=== PATIENT | male | born 1975 | race Caucasian/White ===

== ENCOUNTER 2018-08-12 11:42 | Emergency (ER) | payer OTHER ==
[~2018-08-12] VITALS: Wt 89.5 kg
[2018-08-12] MEDS ORDERED: SOD CHLORIDE 0.9% 1,000 ML IV STA ×2 (12:40→13:35)
[2018-08-12] MEDS ORDERED: POTASSIUM CHLORIDE (SR) 20 MEQ TAB PO STA (13:31)
[2018-08-12] MEDS ORDERED: MAGNESIUM SULFATE 2 GM/50 ML 50 ML IVPB ONE (15:00)
[2018-08-12] MEDS ORDERED: POTASSIUM CHLORIDE 100 ML IVPB SCH (15:00)
[2018-08-12 19:29] VITALS: BP 114/70; PULSE 92; RESP 12
--- NOTE | 2018-08-12 19:34 | ERD ---
ER Documentation Chief Complaint Chief Complaint SUDDEN ONSET DIZZINESS NO NEURO DEFICIT NO TRAUMA. NO HEADACHE. HPI 43-year-old male presenting with complaints of sudden onset dizziness feeling like he is about to pass out. Patient has a history of A. fib but is only on aspirin. For the past 4 days he has been taking Lasix that someone gave him from the gym. He had some type of competition today that he wanted to be slim for. He is also not been eating well. He denies any fever, chills, nausea, vomiting, diarrhea, chest pain, shortness of breath, abdominal pain. ROS All systems reviewed and are negative except as per history of present illness. Allergies Allergies: Coded Allergies: No Known Allergy (Unverified , 08/12/18) PMhx/Soc Medical and Surgical Hx: pt denies Surgical Hx History of Surgery: No Anesthesia Reaction: No Hx Neurological Disorder: No Hx Respiratory Disorders: No Hx Cardiac Disorders: Yes (afib) Hx Psychiatric Problems: No Hx Miscellaneous Medical Probl: No Hx Alcohol Use: No Hx Substance Use: No Hx Tobacco Use: No Smoking Status: Never smoker FmHx Family History: No diabetes Physical Exam Vitals Vital Signs Date Temp Pulse Resp B/P (MAP) Pulse Ox O2 O2 Flow FiO2 Time Delivery Rate 08/12/18 97.8 86 20 111/87 100 Room Air 17:51 (95) 08/12/18 97.8 89 20 109/82 100 Room Air 16:56 (91) 08/12/18 97.8 91 20 115/89 100 Room Air 15:51 (98) 08/12/18 97.8 83 20 128/102 100 Room Air 15:00 (111) 08/12/18 97.8 102 20 140/86 98 11:51 (104) Physical Exam Const: No acute distress Head: Atraumatic Eyes: Normal Conjunctiva ENT: Dry mucous membranes. Normal External Ears, Nose and Mouth. Neck: Full range of motion. No meningismus. Resp: Clear to auscultation bilaterally Cardio: Tachycardic with regular rhythm, no murmurs Abd: Soft, non tender, non distended. Normal bowel sounds Skin: No petechiae or rashes Back: No midline or flank tenderness Ext: No cyanosis, or edema Neur: Awake and alert, oriented x3, cranial nerves intact, strength and sensations intact in all 4 extremities Psych: Normal Mood and Affect Result Diagram: 08/12/18 1249 08/12/18 1249 Results 24 hrs Laboratory Tests Test 08/12/18 12:49 White Blood Count 8.4 10^3/ul Red Blood Count 5.31 10^6/ul Hemoglobin 16.6 g/dl Hematocrit 47.7 % Mean Corpuscular Volume 89.8 fl Mean Corpuscular Hemoglobin 31.3 pg Mean Corpuscular Hemoglobin Concent 34.8 g/dl Red Cell Distribution Width 11.1 % Platelet Count 225 10^3/UL Mean Platelet Volume 11.4 fl Immature Granulocytes % 0.200 % Neutrophils % 74.7 % Lymphocytes % 15.2 % Monocytes % 8.7 % Eosinophils % 0.2 % Basophils % 1.0 % Nucleated Red Blood Cells % 0.0 /100WBC Immature Granulocytes # 0.020 10^3/ul Neutrophils # 6.2 10^3/ul Lymphocytes # 1.3 10^3/ul Monocytes # 0.7 10^3/ul Eosinophils # 0.0 10^3/ul Basophils # 0.1 10^3/ul Nucleated Red Blood Cells # 0.0 10^3/ul Urine Color STRAW Urine Clarity CLEAR Urine pH 5.0 Urine Specific [place] 1.010 Urine Ketones 2+ mg/dL Urine Nitrite NEGATIVE mg/dL Urine Bilirubin NEGATIVE mg/dL Urine Urobilinogen NEGATIVE mg/dL Urine Leukocyte Esterase NEGATIVE Moses/ul Urine Hemoglobin NEGATIVE mg/dL Urine Glucose NEGATIVE mg/dL Urine Total Protein NEGATIVE mg/dl Sodium Level 134 mmol/L Potassium Level 2.7 mmol/L Chloride Level 91 mmol/L Carbon Dioxide Level 24 mmol/L Anion Gap 19 Blood Urea Nitrogen 14 mg/dl Creatinine 1.15 mg/dl Est Glomerular Filtrat Rate mL/min > 60 mL/min Glucose Level 108 mg/dl Calcium Level 9.6 mg/dl Total Bilirubin 1.3 mg/dl Direct Bilirubin 0.00 mg/dl Indirect Bilirubin 1.3 mg/dl Aspartate Amino Transf (AST/SGOT) 115 IU/L Alanine Aminotransferase (ALT/SGPT) 111 IU/L Alkaline Phosphatase 121 IU/L Total Protein 7.9 g/dl Albumin 5.0 g/dl Globulin 2.90 g/dl Albumin/Globulin Ratio 1.72 Lipase 89 U/L Current Medications Medications Dose Sig/Fariha Start Time Status Last (Trade) Ordered Route PRN Stop Time Admin Dose Reason Admin Sodium 1,000 ml @ Q1H STAT 08/12/18 DC 08/12/18 Chloride 1,000 mls/hr IV 12:40 13:01 08/12/18 13:39 Potassium 40 meq ONCE STAT 08/12/18 DC 08/12/18 Chloride PO 13:31 13:55 (Klor-Con 20) 08/12/18 13:32 Sodium 1,000 ml @ Q1H STAT 08/12/18 DC 08/12/18 Chloride 1,000 mls/hr IV 13:35 13:59 08/12/18 14:34 Potassium 100 ml @ Q2H IVPB 08/12/18 08/12/18 Chloride 50 mls/hr 15:00 15:43 08/12/18 22:59 Magnesium 50 ml @ 25 ONCE ONCE 08/12/18 DC 08/12/18 Sulfate mls/hr IVPB 15:00 15:43 08/12/18 16:59 Procedures/MDM EMERGENT LABS AND DIAGNOSTIC STUDIES: Lab Results above were reviewed and interpreted by me. CBC: no anemia or evidence of infection CMP: Severe hypokalemia, mild hyponatremia. mild transaminitis, unclear etiology. No e/o clinically severe acidosis, alkalosis, renal failure, diabetic ketoacidosis 12-lead EKG was interpreted by Arely Benavidez MD: Atrial fibrillation at 97 bpm Normal axis Normal intervals No acute ST or T wave changes suggestive of acute ischemia or STEMI. Initial Nursing notes reviewed. Previous Medical Records requested via the Electronic Health Record. EMERGENCY DEPARTMENT COURSE / MEDICAL DECISION MAKING: Patient is presenting with severe dizziness and near syncopal symptoms. He was mildly tachycardic upon arrival but otherwise had unremarkable vitals. Given his story, I feel the patient is severely dehydrated. He was given IV fluids initially. He was found to have severe hypokalemia without EKG changes. He was treated with oral and IV potassium as well as IV magnesium supplementation. I do not feel the patient is stable for discharge and will require admission for electrolyte management. Critical Care Time: 35 minutes Treatments/Evaluations: Close monitoring and treatment of unstable vital signs, cardiorespiratory, and neurologic status, while maintaining tight balance of fluid, respiratory, and cardiac interventions. This time includes discussing the case with the patient and the patients family. This time does not include all procedures stated elsewhere in this record. This time also includes reviewing old records, labs and radiological studies. This time includes examining and re- examining the patient. Additionally, this time also includes arranging care with admitting and consulting physicians. I spoke with [facility] physician, , and he would like to transfer the patient to [facility]. At this point, patient has significantly improved and I feel he is stable for transfer. Authorization #[id number] Departure Diagnosis: Primary Impression: Near syncope Additional Impression: Diuretic-induced hypokalemia Condition: Serious DARYL BENAVIDEZ MD August 12, 2018 19:34
--- NOTE | 2018-08-13 11:56 | RADRPT ---
Vent Rate: 97 bpm RR Interval: 0 msec OK Interval: 0 msec QRS Duration: 98 msec QT Interval: 344 msec QTC Interval: 436 msec P-R-T [place]: 0 - 31 - 8 degrees Atrial fibrillation Nonspecific ST and T wave abnormality , probably digitalis effect Abnormal ECG Electronically Signed By: *[facility]
== END 2018-08-12 19:59 | disposition short-term general hospital (02) ==
LOC: FTE 11:42 → E/R 19:59
DX: R55 Syncope and collapse (principal); E87.6 Hypokalemia
CPT/HCPCS: 36415; 80053; 81003; 83690; 85025; 93005; 96374; 96375; 99285; J3475; J3480; J7030